=== PATIENT | female | born 1990 | race Caucasian/White ===

== ENCOUNTER 2016-11-15 14:12 | Emergency (ER) | payer OTHER ==
[~2016-11-15] VITALS: Ht 154.9 cm; Wt 56.7 kg
[~2016-11-15 14:12] MED LIST: LIDOCAINE VISC100 M2 PO
[2016-11-15] MEDS ORDERED: FEMCON FE PO (15:08)
--- NOTE | 2016-11-15 15:15 | ED GI/GU/ABDOMINAL COMPLAINT ---
History of Present Illness General Chief Complaint: Abdominal Pain/Flank Pain Stated Complaint: RT SIDE ABDOMINAL PAIN SENT BY URGENT CARE Source: patient Exam Limitations: no limitations Vital Signs & Intake/Output Vital Signs & Intake/Output Vital Signs Date Time Temp Pulse Resp B/P B/P Pulse O2 O2 Flow FiO2 Mean Ox Delivery Rate 11/15 1701 98.9 75 16 103/58 05/ 1414 99.0 114 18 128/82 96 ED Intake and Output 11/16 0000 11/15 1200 Intake Total 1000 Output Total Balance 1000 Intake, IV 1000 Patient 125 lb Weight Allergies Coded Allergies: Penicillins (Severe, ANAPHYLAXIS 11/15/16) Reconcile Medications Dicyclomine Hydrochloride (Bentyl) 10 MG CAPSULE 1 CAP PO TID PRN GASTRITIS Noreth-Ethinyl Estradiol/Iron (Femcon Fe Chewable Tablet) 0.4-35(21) TAB.CHEW 1 TAB PO DAILY BC (Reported) Ondansetron HCl (Zofran) 4 MG TABLET 1 TAB PO Q6-8P PRN NAUSEA Triage Note: PATIENT SENT TO ER FROM [facility] FOR COMPLAINTS OF RLQ PAIN FOR THE PAST 24 HOURS WITH NAUSEA, PAIN IS CONSTANT, INTERMITTANT FEVERS AND LAYING ON HER SIDE MAKES IT BETTER. DENIES URINARY SYMPTOMS. HAD NEGATIVE PREGNACY AND UA AT WALK IN Triage Nurses Notes Reviewed? yes ? N Is pt currently ? No Onset: Abrupt Duration: constant Timing: recent history Severity Numbers: 6 Location: right lower quadrant Radiation: no radiation Activities at Onset: none HPI: Patient is a 26-year-old female who presents emergent with a 24-hour history of acute onset of right lower quadrant abdominal pain. Patient has been nauseous with associated symptoms however can tolerate by mouth with worsening symptoms. Patient was evaluated in urgent care facility and advised to present to the emergency room. Last menstrual period was 3 weeks ago. Last bowel movement was yesterday no blood no melena noted. Patient notes of tactile fevers and chills. Denies any dysuria or hematuria vaginal bleeding vaginal discharge back pain. Patient has not taken medications for symptoms. Denies any significant NSAID use or alcohol use. Prior to arrival patient had been evaluated in urgent care facility noted to be negative from urine. (BUBBA PARK,TRACEY) Past History Travel History Traveled to [place] past 21 day No Medical History Any Pertinent Medical History? 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 No (TRACEY MANZO) Review of Systems Review of Systems Constitutional: Reports: no symptoms. EENTM: Reports: no symptoms. Respiratory: Reports: no symptoms. Cardiovascular: Reports: no symptoms. GI: Reports: see HPI, abdominal pain. Genitourinary: Reports: no symptoms. Musculoskeletal: Reports: no symptoms. Skin: Reports: no symptoms. Neurological/Psychological: Reports: no symptoms. Hematologic/Endocrine: Reports: no symptoms. Immunologic/Allergic: Reports: no symptoms. All Other Systems: Reviewed and Negative (TRACEY MANZO) Physical Exam Physical Exam General Appearance: no apparent distress, alert Gastrointestinal: normal bowel sounds, soft Comments: Well-developed well-nourished person in no acute distress HEENT: Normal EENT exam, Neck: Supple, no lymphadenopathy, normal range of motion without pain or tenderness Back: Nontender, no CVA tenderness Cardiovascular: Regular rate and rhythms no murmurs rubs or gallops, normal JVP Respiratory: Chest nontender. No respiratory distress.breath sounds clear to auscultation bilaterally Extremity: No edema, no calf tenderness to palpation, normal and equal pulses. Neuro: Alert oriented x3, motor sensory normal Skin: No appreciable rash on exposed skin, skin is warm and dry. Psych: Mood and affect is normal, memory and judgment is normal. Core Measures ACS in differential dx? No Severe Sepsis Present: No Septic Shock Present: No (TRACEY MANZO) Progress Differential Diagnosis: AAA, AMI, appendicitis, biliary colic, bowel obstruction , colon cancer, cholecystitis, diverticulitis, ectopic , endometritis, esophageal varices, gastritis, hepatitis, hernia, hemorrhoids, ischemic bowel, inflamm bowel dis, intrauterine , kidney stone, Susana-Melina tear, ovarian cyst, ovarian torsion, pancreatitis, PID/cervicitis, peptic ulcer, PUD/ GERD, perforated viscous, SBO, threatened AB, UTI/pyelo Plan of Care: Orders Procedure Date/time Status URINE 11/15 1525 Complete URINALYSIS 11/15 152 Complete COMPREHENSIVE METABOLIC PANEL 11/15 152 Complete CBC WITHOUT DIFFERENTIAL 11/15 1524 Complete Laboratory Tests 11/15/16 1540: Urine Color YEL, Urine Clarity CLEAR, Urine pH 6.0, Ur Specific [place] 1.015, Urine Protein NEG, Urine Ketones 15 H, Urine Nitrite NEG, Urine Bilirubin NEG, Urine Urobilinogen 0.2, Ur Leukocyte Esterase NEG, Ur Microscopic EXAM NOT REQUIRED, Urine Hemoglobin NEG, Urine Glucose NEG, Urine Test NEGATIVE 11/15/16 1530: Anion Gap 10, Estimated GFR > 60, BUN/Creatinine Ratio 15.7, Glucose 91, Calcium 8.7, Total Bilirubin 0.6, AST 25, ALT 37, Alkaline Phosphatase 55, Total Protein 6.3, Albumin 3.6, Globulin 2.7, Albumin/Globulin Ratio 1.3, CBC w Diff NO MAN DIFF REQ, RBC 5.10, MCV 86.9, MCH 30.0, RDW 12.8, MPV 8.1, Gran % 78.8 H, Lymphocytes % 10.3 L, Monocytes % 10.4 H, Eosinophils % 0.2, Basophils % 0.3, Absolute Granulocytes 4.7, Absolute Lymphocytes 0.6 L, Absolute Monocytes 0.6, Absolute Eosinophils 0, Absolute Basophils 0, PUBS MCHC 34.5 Patient on initial examination was in no apparent distress and declines pain medications when offered 11/15/2016 5:16:31 PM reevaluation the patient patient had complete resolution of nausea however still declined pain medications. Patient is resting comfortably. Unremarkable blood work and CT scan was noted and discussed with patient. Patient was able tolerate by mouth upon discharge. I discussed with patient if worsening symptoms occur to return to the emergency room and she will comply. 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 (BUBBA PARK,TRACEY) Diagnostic Imaging: Viewed by Me: CT Scan. Radiology Impression: no acute abnormality Initial ED EKG: none Comments: PATIENT: PRANAV REINOSO PRESENT AGE: 26 PATIENT ACCOUNT NO: [id number] : 92 LOCATION: ER ORDERING PHYSICIAN: TRACEY PARK SERVICE DATE: 11/15/16-1524 EXAM TYPE: CAT - CT ABD & PELVIS W IV CONTRAST EXAMINATION: CT ABDOMEN AND PELVIS WITH CONTRAST CLINICAL INFORMATION: 26-year-old female with right lower quadrant pain and nausea. Evaluate appendix. COMPARISON: Abdomen ultrasound from 02/15/2015 TECHNIQUE: Multidetector volumetric imaging was performed of the abdomen and pelvis before and after the IV administration of 94 mL of Optiray 320 intravenous contrast. Sagittal and coronal reformatted images were obtained on the technologist's workstation. DLP: 264 mGy-cm FINDINGS: LUNG BASES: No acute findings. Small, 0.4 cm noncalcified nodule is incidentally detected within the right middle lobe. LIVER, GALLBLADDER, AND BILIARY TREE: The liver is normal in size, shape, and attenuation. No focal hepatic lesion or biliary ductal dilatation. The gallbladder is unremarkable with no evidence of radiopaque gallstones, gallbladder wall thickening, or pericholecystic inflammatory changes. PANCREAS: Unremarkable. SPLEEN: Spleen is normal in size. Posterior splenule is noted. ADRENAL GLANDS: Unremarkable. KIDNEYS AND URETERS: The kidneys are normal in size, shape, and attenuation. No hydronephrosis, hydroureter, or calculi seen. No perinephric stranding. BLADDER: Unremarkable. GASTROINTESTINAL TRACT: Stomach is unremarkable. Bowel loops are normal in size. The terminal ileum and cecum are normal. The appendix is not definitively seen, but it might represent the 0.4 cm diameter structure extending medial to the cecum on coronal reformatted image 25 of 83. There is a paucity of mesenteric fat in the abdomen and pelvis. There is no pericolonic fat stranding or perirectal inflammation. No ascites or pneumoperitoneum. ABDOMINAL WALL: Unremarkable. LYMPH NODES: No pathologic sized lymph nodes within the abdomen or pelvis. Small lymph nodes measuring up to 0.6 cm short axis dimension are seen within the mesentery. No mesenteric inflammation. VASCULAR: Abdominal aorta is normal in caliber. The celiac trunk, SMA, SRIDEVI and renal arteries are widely patent. Inferior vena cava and renal veins are normal. The mesenteric, splenic and portal veins are patent. PELVIC VISCERA: The anteflexed uterus is normal in size. No evidence of adnexal mass. No pelvic free fluid. OSSEOUS STRUCTURES: Unremarkable. IMPRESSION: No acute imaging abnormality within the abdomen or pelvis. No evidence of inflammation within the mesentery or along the gastrointestinal tract. Although the appendix is not well seen (possibly the 0.4 cm diameter structure seen on coronal reformatted image 25 of 83), there are no inflammatory changes in the region of the appendix. Also, no evidence of urolithiasis or urinary tract obstruction. DICTATED BY: NERY CHACON MD DATE/TIME DICTATED:11/15/161649 MASKING MACHINE FEEDER:HANG DATE/TIME TRANSCRIBED:11/15/161649 (TRACEY MANZO) Departure Departure Disposition: HOME OR SELF CARE Condition: Stable Clinical Impression Primary Impression: Abdominal pain Referrals: ELIJAH STILL (PCP/Family) Additional Instructions: As discussed begin a 24-hour clear liquid and bland diet to rest your bowels. Begin the prescription of Zofran for nausea and Bentyl for abdominal complaints. If symptoms worsen return to the emergency room. Prescriptions awaiting AT your pharmacy. If no better on Friday follow-up with your establishED air tester Departure Forms: Customer Survey General Discharge Information Prescriptions: Current Visit Scripts Ondansetron HCl (Zofran) 1 TAB PO Q6-8P PRN NAUSEA #15 TAB Dicyclomine Hydrochloride (Bentyl) 1 CAP PO TID PRN GASTRITIS #9 CAP (TRACEY MANZO) PA/ONLINE MARKETING DIRECTOR Co-Sign Statement Statement: ED Attending supervision documentation- [] I saw and evaluated the patient. I have also reviewed all the pertinent lab results and diagnostic results. I agree with the findings and the plan of care as documented in the PA's/ONLINE MARKETING DIRECTOR's documentation. [X] I have reviewed the ED Record and agree with the PA's/ONLINE MARKETING DIRECTOR's documentation. [] Additions or exceptions (if any) to the PAs/ONLINE MARKETING DIRECTOR's note and plan are summarized below: [] (ALICIA MANZANARES,STEFANIE)
[2016-11-15 15:51] LABS: ABSOLUTE BASOPHIL COUNT 0 /CUMM (0.0-0.2); ABSOLUTE EOSINOPHIL COUNT 0 /CUMM (0.0-0.7); ABSOLUTE GRANULOCYTE CT 4.7 /CUMM (1.4-6.5); ABSOLUTE LYMPH COUNT 0.6 /CUMM (1.2-3.4); ABSOLUTE MONOCYTE COUNT 0.6 /CUMM (0.10-0.60); BASOPHIL % 0.3 % (0.0-2.0); EOSINOPHIL % 0.2 % (0-5); GRANULOCYTE % 78.8 % (42.2-75.2); HEMATOCRIT 44.3 % (37-47); MEAN CORPUSCULAR HGB CONC 34.5 G/DL (33.0-37.0); MEAN CORPUSCULAR VOLUME 86.9 FL (81.0-99.0); MEAN PLATELET VOLUME 8.1 FL (7.4-10.4); PLATELET COUNT 265 /CUMM (130-400); RBC DISTRIBUTION WIDTH 12.8 % (11.5-14.5)
[2016-11-15 17:01] VITALS: BP 103/58
--- NOTE | 2016-11-15 17:10 | CT SCAN REPORT ---
EXAMINATION: CT ABDOMEN AND PELVIS WITH CONTRAST CLINICAL INFORMATION: 26-year-old female with right lower quadrant pain and nausea. Evaluate appendix. COMPARISON: Abdomen ultrasound from 02/15/2015 TECHNIQUE: Multidetector volumetric imaging was performed of the abdomen and pelvis before and after the IV administration of 94 mL of Optiray 320 intravenous contrast. Sagittal and coronal reformatted images were obtained on the technologist's workstation. DLP: 264 mGy-cm FINDINGS: LUNG BASES: No acute findings. Small, 0.4 cm noncalcified nodule is incidentally detected within the right middle lobe. LIVER, GALLBLADDER, AND BILIARY TREE: The liver is normal in size, shape, and attenuation. No focal hepatic lesion or biliary ductal dilatation. The gallbladder is unremarkable with no evidence of radiopaque gallstones, gallbladder wall thickening, or pericholecystic inflammatory changes. PANCREAS: Unremarkable. SPLEEN: Spleen is normal in size. Posterior splenule is noted. ADRENAL GLANDS: Unremarkable. KIDNEYS AND URETERS: The kidneys are normal in size, shape, and attenuation. No hydronephrosis, hydroureter, or calculi seen. No perinephric stranding. BLADDER: Unremarkable. GASTROINTESTINAL TRACT: Stomach is unremarkable. Bowel loops are normal in size. The terminal ileum and cecum are normal. The appendix is not definitively seen, but it might represent the 0.4 cm diameter structure extending medial to the cecum on coronal reformatted image 25 of 83. There is a paucity of mesenteric fat in the abdomen and pelvis. There is no pericolonic fat stranding or perirectal inflammation. No ascites or pneumoperitoneum. ABDOMINAL WALL: Unremarkable. LYMPH NODES: No pathologic sized lymph nodes within the abdomen or pelvis. Small lymph nodes measuring up to 0.6 cm short axis dimension are seen within the mesentery. No mesenteric inflammation. VASCULAR: Abdominal aorta is normal in caliber. The celiac trunk, SMA, SRIDEVI and renal arteries are widely patent. Inferior vena cava and renal veins are normal. The mesenteric, splenic and portal veins are patent. PELVIC VISCERA: The anteflexed uterus is normal in size. No evidence of adnexal mass. No pelvic free fluid. OSSEOUS STRUCTURES: Unremarkable. IMPRESSION: No acute imaging abnormality within the abdomen or pelvis. No evidence of inflammation within the mesentery or along the gastrointestinal tract. Although the appendix is not well seen (possibly the 0.4 cm diameter structure seen on coronal reformatted image 25 of 83), there are no inflammatory changes in the region of the appendix. Also, no evidence of urolithiasis or urinary tract obstruction.
[2016-11-15] MEDS ORDERED: ZOFRAN4 M2 PO (17:26)
[2016-11-15] MEDS ORDERED: BENTYL10 M1 PO (17:26)
== END 2016-11-15 17:33 ==
LOC: ERH 14:12
PROVIDERS: Physician Assistant
DX: R10.31 Right lower quadrant pain (principal)
CPT/HCPCS: 74177; 81003; 81025; 96374; J2405